=== PATIENT | male | born 1955 | race Caucasian/White ===

== ENCOUNTER 2017-10-11 22:21 | Emergency (ER) | payer BC ==
[~2017-10-11] VITALS: Ht 182.9 cm; Wt 94.3 kg
[2017-10-11 22:29] VITALS: Ht 182.9 cm; Wt 94.3 kg
[2017-10-11 23:50] VITALS: BP 104/65
== END 2017-10-11 23:50 | disposition home or self-care (01) ==
LOC: ED 22:21
DX: T63.481A Toxic effect of venom of other arthropod, accidental (unintentional), initial encounter (principal); Y92.89 Other specified places as the place of occurrence of the external cause
CPT/HCPCS: J7512